=== PATIENT | female | born 1995 | race Caucasian/White ===

== ENCOUNTER 2018-10-20 06:38 | Day surgery (SDC) | payer OTHER ==
[2018-10-19 17:39] LABS: Absolute Monocytes 0.5 K/uL (0.1-1.3); Absolute Neutrophil 3.4 K/uL (1.8-8.0); Basophils % 0.7 % (0-1.3); Eosinophils % 1.7 % (0-4.4); Hematocrit 42.3 % (36.0-45.0); MPV 9.1 fL (7.6-11.3); Monocytes % 7.5 % (3.3-12.3); Protime INR 0.93; RBC Red Blood Cell Count 4.35 M/uL (3.86-4.86)
[2018-10-19 17:45] LABS: Urine Appearance CLOUDY; Urine Bilirubin NEGATIVE (NEG); Urine Blood NEGATIVE (NEG); Urine Color YELLOW; Urine Glucose NEGATIVE (NEG); Urine Protein NEGATIVE (NEG); Urine Urobilinogen 0.2 mg/dL (0.2-1.0)
--- NOTE | 2018-10-19 17:45 | RAD REPORT ---
EXAM DESCRIPTION: RAD - Chest Pa And Lat (2 Views) - 10/19/2018 5:33 pm CLINICAL HISTORY: preop Chest pain. COMPARISON: No comparisons FINDINGS: The lungs are clear. The heart is normal in size. No displaced fractures. IMPRESSION: No acute or concerning finding suspected.
[2018-10-19 17:49] LABS: BUN Blood Urea Nitrogen 19 mg/dL (7-18); Bicarbonate 29 mmol/L (21-32); Glucose Level 83 mg/dL (74-106); Potassium 3.9 mmol/L (3.5-5.1); Sodium Level 140 mmol/L (136-145)
[2018-10-19 17:51] LABS: Urine Microscopic Reflex ORDER UMIC
[2018-10-19 19:16] LABS: Urine Bacteria <20 /HPF (<20); Urine RBC <5 /HPF (NONE SEEN)
[2018-10-19 19:17] LABS: Urine Amorphous Sediment 2+ /HPF (NONE SEEN); Urine Culture Reflex Order NOT NEEDED; Urine Mucus 2+ /HPF (NONE SEEN)
--- NOTE | 2018-10-19 21:24 | PREOPHP ---
Date of Admission: 10/20/2018 A 22-year-old female with a large left adnexal mass. Ultrasound demonstrates with probably an organi zed hematoma with part fluid and part solid component. We do not think this is probably anything to do with the cancer, although the patient knows that we cannot be 100% sure. She has had this for a l ittle while and wishes to have it removed at this point. She does not wish to wait any further. I h ave given her options of waiting another week or two, but she says the discomfort is too much and she cannot wait. She knows that because it is large and has been there for not determinable length of t ryan, that we may end up having to remove the tube and ovary on that side. She is fully aware of this and wishes to proceed. Family History: Really not contributory to the present situation. Allergies: SHE HAS ALLERGIES TO MUSCLE RELAXANTS, AZITHROMYCIN AND COUGH SYRUP. SHE HAS HAD A IN THE PAST. Physical Examination: General: Completely clear. HEENT: Clear. Pupils equal, round, and reactive to light and accommodation. Conjunctivae well perf used. No oral, lingual, or buccal lesions. Chest: Clear. Lungs: Clear. Heart: Without murmurs, thrills, heaves, or rubs. Breasts: Not examined, but on previous visits, clear. Abdomen: Soft, with the left lower quadrant discomfort and she has a large mass at least 7.5 cm, it is very tender on palpation. Extremities: Clear without edema, cyanosis, or clubbing. Infection, blood loss, anesthetic complications, injury to bladder, bowel, ureter, postoperative comp lications, clots in legs discussed. The patient knows fully well this does not constitute all the po ssible problems that could occur during or following surgery. We will proceed. She knows Dr. Amarjit chahal and I will be doing the surgery and if we cannot get this thing out laparoscopically, we will do an open procedure. MADHURI/ANNETTE Voice ID: [id number]
[2018-10-20] MEDS ORDERED: Ringers Lactate 1,000 ML IV ONE ×2 (07:04→08:14)
[2018-10-20] MEDS ORDERED: CEFOXITIN/SWI 1gm 1 GM/10 ML SYR ONE (07:05)
[2018-10-20] MEDS ORDERED: CEFAZOLIN/SWI 1gm 0 GM/0 ML SYR ONE (07:05)
[2018-10-20] MEDS ORDERED: SILVER NITRATE 1 APPL TOP ONE (07:17)
[2018-10-20] MEDS ORDERED: BUPIVACAINE 0.5% PF 10 ML VIAL ONE (07:17)
[2018-10-20] MEDS ORDERED: FENTANYL CITR 100 MCG/2 ML ONE ×3 (07:26→08:46)
[2018-10-20] MEDS ORDERED: PROPOFOL 200 MG/20 ML VIAL IV ONE (07:26)
[2018-10-20] MEDS ORDERED: ROCURONIUM 50 MG/5 ML VIAL IV ONE (07:27)
[2018-10-20] MEDS ORDERED: MIDAZOLAM HCL 2 MG/2 ML INJ ONE (07:27)
[2018-10-20] MEDS ORDERED: LIDOCAINE 1% MPF 5 ML VIAL ONE (07:27)
[2018-10-20] MEDS ORDERED: DEXAMETHASONE 10 MG/ML VIAL ONE (08:16)
[2018-10-20] MEDS ORDERED: NEOSTIGMINE 1 MG/ML -10 ML VIAL ONE (08:22)
[2018-10-20] MEDS ORDERED: GLYCOPYRROLATE 0.2 MG/ML SYR ONE (08:22)
[2018-10-20] MEDS ORDERED: KETOROLAC 30 MG/ML INJ ONE ×2 (08:22→12:23)
[2018-10-20] MEDS ORDERED: ONDANSETRON 4 MG/2 ML VIAL ONE (08:22)
[2018-10-20] MEDS: HYDROMORPHONE HCL 1 MG/ML INJ ONE ×4 (09:04→09:21)
--- NOTE | 2018-10-20 09:17 | P.BOP ---
Preoperative diagnosis: LLQ pain, L adnexal mass Postoperative diagnosis: same , intrabdominal adhesions, incarcerated umbilical hernia Primary procedure: Dr Sanz: All laparoroscopy, Lap RUBY, open repair incarumbilical hernia Secondary procedure: DR Gardner: All lap, cystectomy ( see Dr gardner op report for details) Estimated blood loss: <10cc Specimen: hernia sac, cyst Findings: see op report Anesthesia: General Complications: None Transferred to: Recovery Room Condition: Good
[2018-10-20] MEDS ORDERED: CODEINE 30MG/APAP 300MG TAB ONE (10:32)
[2018-10-20] MEDS ORDERED: ONDANSETRON 4 MG (ODT) TAB ONE (10:32)
[2018-10-20] MEDS ORDERED: MEPERIDINE HCL 25 MG/0.5 ML ONE (12:23)
[2018-10-20] MEDS ORDERED: PROMETHAZINE 25 MG/ML VIAL ONE (13:00)
--- NOTE | 2018-10-20 13:31 | OP ---
Date of Procedure: 10/20/2018 Surgeon: Padilla Sanz MD Preoperative Diagnosis: Left lower quadrant pain, left adnexal mass. Postoperative Diagnosis: Left lower quadrant pain, left adnexal mass, intraabdominal adhesions, inca rcerated umbilical hernia. Procedures: This was done by 2 different surgeons. My partner, Dr. Gardner will dictate his part from the gynecological standpoint. From the General Surgery standpoint, Dr. Sanz did a diagnostic la paroscopy, laparoscopic lysis of adhesions, open repair of incarcerated umbilical hernia. From Dr. Chepe schmid's standpoint, he performed diagnostic lap with a cystectomy and any other procedure that he will dictate on his report. Estimated Blood Loss: Less than 10 cc. Specimen: Hernia sac, cyst. Findings: We will describe the findings from the General Surgery standpoint. Please see Dr. Gardner's report for the findings from the gynecological standpoint. From the General Surgery standpoint, the patient has previous . She has extensive adhesions in the lower abdomen that needs to be a ddressed and removed not only because it may relieve her pain and help with her pain, but also to get access to the ovarian lesion. The lysis of adhesions was done with the help of a ligature. Diagnos tic lap was done, liver with no extraluminal masses. Stomach soft and compressible. Some adhesions over the area of the liver, but nothing major in that area. Stomach soft and compressible. Small julio wel and large bowel with no extraluminal masses seen. Retroperitoneum, we did not see any obvious ma sses that we can see in our site of the peritoneum. Over the area of the pelvis, we noticed the jay ent to have what looks like a cystic lesion on the left side coming near the ovary. We did not see a ny obvious masses. Once again, refer to Dr. Gardner's dictation for details. Indications: This is a case of a 23-year-old patient, comes with left lower quadrant pain, diagnosed with a cystic mass over the left adnexal region. Dr. Gardner after discussing with her decided to do a cystectomy, possible oophorectomy and salpingectomy. From the General Surgery standpoint, I have a chance to interview the patient preoperatively and discuss with her the options of diagnostic lap, p ossible lysis of adhesions since patient has previous surgeries in that area. The belly button area has mild tenderness. She had previous surgeries to that region, so when we go there we are going to try to rule out also umbilical hernia, although I have to make an incision first and any other indica jazmyne procedure. Dr. Gardner will be present to help to take care of any ovarian pathology that is encou ntered. The benefits, alternatives, and risks were fully explained to the patient, which include, bu t are not limited to infection, bleeding, damage to adjacent structures, anesthesia complications, re currence, negative laparoscopy, bowel injury, OK, even . She also understands this may not reli mackenzie any symptoms. She might need more than one surgical intervention. She understood and signed a c onsent. Description Of Procedure: The patient was brought to the operating room, placed in supine position. Anesthesia was done without complication. A time-out was called. Abdomen was prepped and draped in a sterile fashion. Local anesthetic was applied in infraumbilical region. We opened up previous in cision of the patient in that area. When we went there, the patient had incarcerated omentum to the umbilical hernia, so carefully the umbilical sac was identified, opened, removed. That gave us acces s to the fascia. We extended the fascia a little bit more to allow the Mitchell trocar to be going in. We then put the trocars in immediately. We noticed adhesions on the lower abdomen, and we knew we are going to have to address that issue in order for us to found the pathology. Dr. Gardner is looking for. After obtaining pneumoperitoneum, I placed a 5 mm trocar on the right lower quadrant. This al lowed me to put an Endo-Ligasure the area and proceed to do lysis of adhesions carefully, not to inju re the cancer program director parts and not to injure the bowel. Slowly and methodically, the lysis of adhesions were d one. Significant amount of time was done just releasing the lysis of adhesions. We checked on them after that, there were no enterotomies and no bleeding. Once we have in, then Dr. Gardner has access t o the gynecological part. He examined the uterus and ovaries and fallopian tube. Please see his dic tation. From our surgical standpoint, we did our diagnostic lap like I mentioned at the beginning of this dictation. Also, we looked at the appendix and looks normal. So, at that moment, we proceeded to direct our attention to the left ovarian area and we noticed the patient had a cystic lesion in t hat area. At the discretion of a lead mobile developer, he believed the fallopian tube and ovarian area shoul d be okay, so the cystectomy was done with the help of the LigaSure and hemostasis was obtained. Jorge gicel was placed at the end. Please see his dictation for details on that. Ureters and iliac vessel s were protected at all times. Intestines were protected at all times. After that, we pr oceeded to go back to our lysis of adhesions. The area looks intact with no bleeding. At that momen t, I proceeded to remove the trocars under direct vision, deflated pneumoperitoneum, closed the umbil ical hernia with a #1 Vicryl interrupted multiple times. The area was irrigated and then closed with 3-0 chromic and subcuticular and subcutaneous. The patient tolerated the procedure well. Sponge co unt and instrument counts were correct. The patient was sent to recovery in stable condition. Discharge summary is from the General Surgery standpoint. You have share with Dr. Gardner, gynecologis t for his discharge instructions, but from the General Surgery standpoint, she will be discharged cora e, follow up in my office in 1 week. Call for appointment [phone]. Keep the area dry for 48 hours, then may shower. Keep Steri-Strips intact. Medications: Include Tylenol No. 3 q.4 hours p.r.n. pain, Bactrim DS p.o. b.i.d., Zofran 4 p.r.n. na usea. She was advised also to follow with Dr. Gardner. CHADWICK/ANNETTE Voice ID: [id number] Report ID: [id number]
[2018-10-20 13:40] VITALS: BP 125/77; TEMP 97.5; O2SAT 97
--- NOTE | 2018-10-20 20:03 | DS ---
Date of Discharge: 10/20/2018 Hospital Course: A 23-year-old female, left large ovarian mass. Full preoperative counseling concer mellisa procedure. She was also given the opportunity to wait to see if this would resolve, but wished t o proceed, said the pain was too great. Diagnostic laparoscopy was performed at which time numerous adhesions of the omentum to the anterior peritoneum were removed. A large omental adhesion to the le ft fundal portion of the uterine fundus was removed. The left ovarian cystectomy was performed. Min imal blood loss, less than 50 cc. Surgicel was placed around the ovary to try to prevent future adhe sions. The appendix was normal. Upper abdomen was normal. The patient also underwent a hernia repa ir. Will be observed for 2-3 hours, then dismissed. To return to my office in 1 week for followup. To report any temperature elevation of 100 degrees or greater, severe pain, heavy bleeding, or any o ther type of abnormalities. She has tramadol at home for analgesia. Full discussion with her family to remind them of postoperative precautions. MADHURI/ANNETTE Voice ID: [id number] Report ID: [id number]
--- NOTE | 2018-10-20 20:03 | OP ---
Surgeon: Rey Gardner MD Preoperative Diagnosis: Probable left ovarian hemorrhagic cyst-organized. Pelvic pain. Indications: Full preoperative counseling concerning the procedure and possible complications, inclu ding infection, blood loss, anesthetic complications, injury to bladder, bowel, ureter, postoperative complications, clots in legs, and pneumonia. Possible removal of the left tube and ovary discussed. General anesthetic endotracheal intubation. Procedure In Detail: Time-out was performed. Laparoscopic incisions were placed. There were noted to be numerous adhesions of the omentum to the anterior peritoneum. These were removed. There were also adhesions to the left fundal portion of the uterus, these were removed. The right tube and ovar y were basically seen to be normal. The left tube was normal. The right ovary was involved in a jessie y large 7.5 to 8 cm cyst. A window was produced and the normal-looking fluid was drained. It became apparent that the organized cyst could be removed. This was done sequentially with the LigaSure aft er the hemorrhagic portion was removed and sent to Pathology. The edges of the window that had been produced were fulgurated. There was no further bleeding. Thorough irrigation was performed, at leas t half of the ovary was conserved. Surgicel was then placed. At this point, Dr. Sanz is in the process of repairing the umbilical hernia. The appendix appeared to be normal. The upper abdomen ap peared to be normal as well. Minimal blood loss, less than 50 cc. The patient tolerated all procedu res well and after hernia repair will be sent to the recovery room in good condition. Final Diagnoses: Pelvic pain, left ovarian probable hemorrhagic cyst. Diagnostic laparoscopy, numer ous adhesions lysed. Left ovarian cystectomy and placement of Surgicel to prevent future adhesions. Umbilical hernia repair now underw ay. NBC/MODL Voice ID: [id number] Report ID: [id number]
== END 2018-10-20 13:40 | disposition home or self-care (01) ==
LOC: OR 06:38
PROVIDERS: ATTEND Specialist
PROC: 0DNU4ZZ Release Omentum, Percutaneous Endoscopic Approach (ICD-10-PCS; 2018-10-20)
PROC: 0UB14ZZ Excision of Left Ovary, Percutaneous Endoscopic Approach (ICD-10-PCS; principal; 2018-10-20 07:30)
PROC: 0WQF0ZZ Repair Abdominal Wall, Open Approach (ICD-10-PCS; 2018-10-20 07:30)
DX: C56.2 Malignant neoplasm of left ovary (principal); K42.0 Umbilical hernia with obstruction, without gangrene; K66.0 Peritoneal adhesions (postprocedural) (postinfection); F17.210 Nicotine dependence, cigarettes, uncomplicated
CPT/HCPCS: 36415; 71046; 80048; 81003; 81015; 84703; 85025; 85610; 86850; 86900; 86901; 88302; 88305; 88307; J0690; J1100; J1170; J2175; J2250; J2405; J2550; J2704; J2710; J3010

== ENCOUNTER 2018-11-02 21:50 | Emergency (ER) | payer OTHER ==
[2018-11-02 23:48] LABS: Absolute Lymphocytes (CBC) 2.1 K/uL (0.7-4.9); Absolute Monocytes 0.3 K/uL (0.1-1.3); Absolute Neutrophil 2.8 K/uL (1.8-8.0); Basophils % 2.1 % (0-1.3); Eosinophils % 2.7 % (0-4.4); Hematocrit 37.8 % (36.0-45.0); Lymphocytes % 38.6 % (15.3-44.8); MPV 9.2 fL (7.6-11.3); Monocytes % 5.9 % (3.3-12.3); RBC Red Blood Cell Count 3.93 M/uL (3.86-4.86)
[2018-11-02 23:49] LABS: Protime INR 1.01
[2018-11-03 00:02] LABS: ALT/SGPT 54 U/L (12-78); AST/SGOT 15 U/L (15-37); Alkaline Phosphatase 79 U/L (45-117); BUN Blood Urea Nitrogen 18 mg/dL (7-18); Bicarbonate 28 mmol/L (21-32); Bilirubin Direct < 0.1 mg/dL (0-0.2); Bilirubin Total 0.4 mg/dL (0.2-1.0); Glucose Level 84 mg/dL (74-106); Magnesium 2.1 mg/dL (1.8-2.4); NT PRO-BNP 15 pg/mL (<125); Potassium 3.8 mmol/L (3.5-5.1); Protein, Total 7.2 g/dL (6.4-8.2); Sodium Level 144 mmol/L (136-145); Troponin (Emerg Dept Use Only) < 0.02 ng/mL (0.0-0.045)
[2018-11-03 01:32] LABS: Urine Blood 1+ (NEG); Urine Glucose NEGATIVE (NEG); Urine Protein NEGATIVE (NEG); Urine Specific Gravity >1.030 (1.005-1.030); Urine pH 5.5 (5.0-7.0)
--- NOTE | 2018-11-03 02:20 | ER ---
Nurse's Notes [facility] Name: Pratima Peterson Age: 23 yrs Sex: Female : 1995 Arrival Date: 11/02/2018 Time: 21:53 Bed 23 Private MD: Raul Mendez E Diagnosis: Shortness of breath;Acute stress reaction Presentation: 11/02 22:02 Presenting complaint: Patient states: SOB, pain between shoulder blades X2 days [employer]. pt ak1 s/p sx 10/20/18. pt sees Dr. Camargo for ovarian cancer. Transition of care: patient was not received from another setting of care. Onset of symptoms is unknown. Risk Assessment: Do you want to hurt yourself or someone else? Patient reports no desire to harm self or others. Initial Sepsis Screen: Does the patient have a suspected source of infection? No. Patient's initial sepsis screen is negative. Care prior to arrival: None. 22:02 Method Of Arrival: Ambulatory ak1 22:02 Acuity: CALDERON 3 ak1 22:30 Initial Sepsis Screen: Does the patient meet any 2 criteria? No. Patient's initial lp1 sepsis screen is negative. Triage Assessment: 22:04 General: Appears in no apparent distress. Behavior is calm, cooperative, anxious. 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 - Social history:: Smoking status: Patient uses tobacco products, denies chronic smoking, but will smoke occasionally. - Ebola Screening: : No symptoms or risks identified at this time. Screenin:42 Abuse screen: Denies threats or abuse. Denies injuries from another. Nutritional lp1 screening: No deficits noted. Tuberculosis screening: No symptoms or risk factors identified. Fall Risk None identified. Assessment: 22:30 General: Appears ill, Behavior is appropriate for age. Pain: Complains of pain in back lp1 Quality of pain is described as sharp. Neuro: Level of Consciousness is awake, alert, obeys commands, Oriented to person, place, time, situation. Cardiovascular: Patient's skin is warm and dry. Respiratory: Reports shortness of breath Airway is patent Respiratory effort is even, unlabored, Respiratory pattern is regular, Breath sounds are clear bilaterally. GI: Abdomen is flat. : No signs and/or symptoms were reported regarding the genitourinary system. EENT: No signs and/or symptoms were reported regarding the EENT system. Derm: Skin is intact, Skin is dry, Skin is pale. Musculoskeletal: No deficits noted. 23:30 Reassessment: Patient appears in no apparent distress at this time. No changes from lp1 previously documented assessment. Patient and/or family updated on plan of care and expected duration. Pain level reassessed. 11/03 01:22 Reassessment: Patient appears in no apparent distress at this time. Patient is alert, lp1 oriented x 3, equal unlabored respirations, skin warm/dry/pink. Patient returned from CT at this time. Vital Signs: 11/02 22:04 BP 113 / 69; Pulse 108; Resp 16; Temp 98; Pulse Ox 98% on R/A; Weight 58.97 kg (R); ak1 Height 5 ft. 9 in. (175.26 cm) (R); Pain 7/10; 23:00 BP 99 / 66; Pulse 68; Resp 18; Pulse Ox 99% on R/A; lp1 23:30 BP 107 / 70; Pulse 62; Resp 19; Pulse Ox 98% on R/A; lp1 11/03 00:04 BP 94 / 63; Pulse 63; Resp 19; Pulse Ox 98% on R/A; lp1 01:23 BP 104 / 93; Pulse 73; Resp 15; Pulse Ox 99% on R/A; lp1 02:35 BP 94 / 60; Pulse 71; Resp 16; Pulse Ox 99% on R/A; lp1 11/02 22:04 Body Mass Index 19.20 (58.97 kg, 175.26 cm) ak1 ED Course: 11/02 21:53 Patient arrived in ED. am2 21:53 Yomi Wayne MD is Private Physician. am2 21:53 Raul Mendez MD is Private Physician. am2 22:03 Triage completed. ak1 22:04 Arm band placed on Patient placed in an exam room, Patient notified of wait time. ak1 22:17 Anastasia Hodges, RN is Primary Nurse. lp1 22:30 Patient has correct armband on for positive identification. Placed in gown. Cardiac lp1 monitor on. Pulse ox on. NIBP on. 22:45 Reji Quinones NP is PHCP. pm1 22:45 Hugh Duarte MD is Attending Physician. pm1 22:56 Radiology exam delayed due to lab results not completed at this time. (BUN/Creatinine). vm2 23:08 Basic Metabolic Panel Sent. jb5 23:08 CBC with Diff Sent. jb5 23:08 LFT's Sent. jb5 23:08 Magnesium Sent. jb5 23:08 NT PRO-BNP Sent. jb5 23:08 PT-INR Sent. jb5 23:08 Troponin (emerg Dept Use Only) Sent. jb5 23:09 Urine --Ancillary (enter results) Sent. jb5 23:09 Urine Dipstick--Ancillary (enter results) Sent. jb5 23:09 Inserted saline lock: 20 gauge in right antecubital area, using aseptic technique. jb5 Blood collected. 0417 00:[address] via wheelchair. lp1 01:22 No provider procedures requiring assistance completed. lp1 01:29 CT Chest For PE Angio In Process Unspecified. EDMS 01:30 CT Abd/Pelvis - W/Contrast: IV contrast only In Process Unspecified. EDMS 02:36 IV discontinued, No redness/swelling at site. Pressure dressing applied. lp1 Administered Medications: No medications were administered Outcome: 02:19 Discharge ordered by MD. pm1 02:36 Discharged to home ambulatory, with family. lp1 02:36 Condition: stable 02:36 Discharge instructions given to patient, Instructed on discharge instructions, follow up and referral plans. Demonstrated understanding of instructions, follow-up care. 02:40 Patient left the ED. lp1 Signatures: Dispatcher [employer] EDNC Anastasia Hodges, RN RN lp1 Alka Cheng RN RN ak1 Reji Quinones, TAMIKO SAFETY OFFICER pm1 Kaylee Carmichael jb5 Rosario Dominguez [facility]
--- NOTE | 2018-11-03 02:20 | EDPHYS ---
Physician Documentation [facility] Name: Pratima Peterson Age: 23 yrs Sex: Female : 1995 Arrival Date: 11/02/2018 Time: 21:53 Bed 23 Private MD: Raul Mendez E ED Physician Hugh Duarte HPI: 11/03 01:19 This 23 yrs old Female presents to ER via Ambulatory with complaints of pm1 possible blood clot. 01:19 The patient has shortness of breath at rest. Onset: The symptoms/episode began/occurred pm1 2 day(s) ago. The patient's shortness of breath is aggravated by moving right arm, is alleviated by nothing. Associated signs and symptoms: Pertinent negatives: chest pain, non-productive cough, productive cough, fever, nausea, vomiting. Severity of symptoms: in the emergency department the symptoms are unchanged. The patient has not experienced similar symptoms in the past. The patient has been recently seen by a physician: Patient with biopsy of left ovary on October 20 and was just given the diagnosis of ovarian cancer on Thursday. Patient reports pain just medial to left shoulder blade and shortness of breath. Patient was concerned that she might have a blood clot. SIDE BOSS: 11/02 22:04 LMP 11/02/2018 ak1 Historical: - Allergies: 22:03 No Known Allergies; ak1 - Home Meds: 22:03 None [Active]; ak1 - PMHx: 22:03 ovarian cancer; ak1 - PSHx: 22:03 ; Cholecystectomy; ak1 22:04 explore lap 10/20/18; ak1 - Immunization history:: Adult Immunizations unknown. - Social history:: Smoking status: Patient uses tobacco products, denies chronic smoking, but will smoke occasionally. - Ebola Screening: : No symptoms or risks identified at this time. ROS: 11/03 01:19 Constitutional: Negative for fever, chills, and weight loss, Eyes: Negative for injury, pm1 pain, redness, and discharge, ENT: Negative for injury, pain, and discharge, Neck: Negative for injury, pain, and swelling, Cardiovascular: Negative for chest pain, palpitations, and edema. : Negative for injury, bleeding, discharge, and swelling, MS/Extremity: Negative for injury and deformity, Skin: Negative for injury, rash, and discoloration, Neuro: Negative for headache, weakness, numbness, tingling, and seizure. Respiratory: Positive for shortness of breath. Back: Positive for of the right scapular area. Exam: 01:19 Constitutional: This is a well developed, well nourished patient who is awake, alert, pm1 and in no acute distress. Head/Face: Normocephalic, atraumatic. Eyes: Pupils equal round and reactive to light, extra-ocular motions intact. Lids and lashes normal. Conjunctiva and sclera are non-icteric and not injected. Cornea within normal limits. Periorbital areas with no swelling, redness, or edema. ENT: Nares patent. No nasal discharge, no septal abnormalities noted. Tympanic membranes are normal and external auditory canals are clear. Oropharynx with no redness, swelling, or masses, exudates, or evidence of obstruction, uvula midline. Mucous membranes moist. Neck: Trachea midline, no thyromegaly or masses palpated, and no cervical lymphadenopathy. Supple, full range of motion without nuchal rigidity, or vertebral point tenderness. No Meningismus. Chest/axilla: Normal chest wall appearance and motion. Nontender with no deformity. No lesions are appreciated. Cardiovascular: Regular rate and rhythm with a normal S1 and S2. No gallops, murmurs, or rubs. Normal PMI, no JVD. No pulse deficits. 01:19 Abdomen/GI: Soft, non-tender, with normal bowel sounds. No distension or tympany. No guarding or rebound. No evidence of tenderness throughout. 01:19 Skin: Warm, dry with normal turgor. Normal color with no rashes, no lesions, and no evidence of cellulitis. MS/ Extremity: Pulses equal, no cyanosis. Neurovascular intact. Full, normal range of motion. 01:19 Respiratory: the patient does not display signs of respiratory distress, Respirations: normal, Breath sounds: are clear throughout. 01:19 Back: pain, that is mild, of the right scapular area, pain with palpation and movement of right arm, normal spinal alignment noted. 01:19 Neuro: Orientation: is normal, Motor: is normal, moves all fours, Sensation: is normal, no obvious gross deficits. Vital Signs: 11/02 22:04 BP 113 / 69; Pulse 108; Resp 16; Temp 98; Pulse Ox 98% on R/A; Weight 58.97 kg (R); ak1 Height 5 ft. 9 in. (175.26 cm) (R); Pain 7/10; 23:00 BP 99 / 66; Pulse 68; Resp 18; Pulse Ox 99% on R/A; lp1 23:30 BP 107 / 70; Pulse 62; Resp 19; Pulse Ox 98% on R/A; lp1 11/03 00:04 BP 94 / 63; Pulse 63; Resp 19; Pulse Ox 98% on R/A; lp1 01:23 BP 104 / 93; Pulse 73; Resp 15; Pulse Ox 99% on R/A; lp1 02:35 BP 94 / 60; Pulse 71; Resp 16; Pulse Ox 99% on R/A; lp1 11/02 22:04 Body Mass Index 19.20 (58.97 kg, 175.26 cm) ak1 MDM: 11/02 22:58 Patient medically screened. pm1 11/03 02:18 Data reviewed: vital signs. Data interpreted: Pulse oximetry: on room air is 99 %. pm1 Interpretation: normal. Counseling: I had a detailed discussion with the patient and/or guardian regarding: the historical points, exam findings, and any diagnostic results supporting the discharge/admit diagnosis, lab results, radiology results, the need for outpatient follow up, to return to the emergency department if symptoms worsen or persist or if there are any questions or concerns that arise at home. 02:18 ED course: patient without any acute findings on CT. Patient with recent diagnosis of pm1 ovarian cancer by biopsy on Thursday. Patient has appointment with oncologist this week. 11/02 22:52 Order name: Urine Dipstick--Ancillary (enter results); Complete Time: 01:37 mw2 11/02 22:52 Order name: Urine --Ancillary (enter results); Complete Time: 01:37 mw2 11/02 22:55 Order name: Basic Metabolic Panel; Complete Time: 01:04 pm1 11/02 22:55 Order name: CBC with Diff; Complete Time: 01:04 pm1 11/02 22:55 Order name: LFT's; Complete Time: 01:04 pm1 11/02 22:55 Order name: Magnesium; Complete Time: 01:04 pm1 04/16 22:55 Order name: CT Chest For PE Angio pm1 11/02 22:55 Order name: NT PRO-BNP; Complete Time: 01:04 pm1 11/02 22:55 Order name: PT-INR; Complete Time: 01:04 pm1 11/02 22:55 Order name: Troponin (emerg Dept Use Only); Complete Time: 01:04 pm1 11/02 22:55 Order name: EKG; Complete Time: 22:55 pm1 11/02 22:55 Order name: Cardiac monitoring; Complete Time: 23:24 pm1 11/02 22:55 Order name: EKG - Nurse/Tech; Complete Time: 22:57 pm1 11/02 22:58 Order name: CT Abd/Pelvis - W/Contrast: IV contrast only pm1 11/02 22:55 Order name: IV Saline Lock; Complete Time: 23:08 pm1 11/02 22:55 Order name: Labs collected and sent; Complete Time: 23:08 pm1 11/02 22:55 Order name: O2 Per Protocol; Complete Time: 23:39 pm1 11/02 22:55 Order name: O2 Sat Monitoring; Complete Time: 23:39 pm1 Administered Medications: No medications were administered Disposition: 04:57 Co-signature as Attending Physician, Hugh Duarte MD. clint Disposition: 11/03/18 02:19 Discharged to Home. Impression: Shortness of breath, Acute stress reaction. - Condition is Stable. - Discharge Instructions: Shortness of Breath, Stress and Stress Management. - Medication Reconciliation Form, Thank You Letter, Antibiotic Education, Prescription Opioid Use form. - Follow up: Emergency Department; When: As needed; Reason: Worsening of condition. Follow up: Private Physician; When: 2 - 3 days; Reason: Recheck today's complaints, Continuance of care, Re-evaluation by your physician. - Problem is new. - Symptoms have improved. Signatures: Dispatcher [employer] EDMS Hugh Duarte MD MD pkl Anastasia Hodges RN RN lp1 Alka Cheng RN RN ak1 Reji Quinones, SAP PPM CONSULTANT SAP PPM CONSULTANT pm1 Corrections: (The following items were deleted from the chart) 02:20 02:19 11/03/2018 02:19 Discharged to Home. Impression: Pain in right shoulder. pm1 Condition is Stable. Forms are Medication Reconciliation Form, Thank You Letter, Antibiotic Education, Prescription Opioid Use. Follow up: Emergency Department; When: As needed; Reason: Worsening of condition. Follow up: Private Physician; When: 2 - 3 days; Reason: Recheck today's complaints, Continuance of care, Re-evaluation by your physician. Problem is new. Symptoms have improved. pm1 02:27 02:20 11/03/2018 02:19 Discharged to Home. Impression: Pain in right shoulder; pm1 Shortness of breath. Condition is Stable. Discharge Instructions: Shoulder Pain. Forms are Medication Reconciliation Form, Thank You Letter, Antibiotic Education, Prescription Opioid Use. Follow up: Emergency Department; When: As needed; Reason: Worsening of condition. Follow up: Private Physician; When: 2 - 3 days; Reason: Recheck today's complaints, Continuance of care, Re-evaluation by your physician. Problem is new. Symptoms have improved. pm1 02:27 02:27 11/03/2018 02:19 Discharged to Home. Impression: Shortness of breath. Condition pm1 is Stable. Discharge Instructions: Shoulder Pain. Forms are Medication Reconciliation Form, Thank You Letter, Antibiotic Education, Prescription Opioid Use. Follow up: Emergency Department; When: As needed; Reason: Worsening of condition. Follow up: Private Physician; When: 2 - 3 days; Reason: Recheck today's complaints, Continuance of care, Re-evaluation by your physician. Problem is new. Symptoms have improved. pm1 02:40 02:27 11/03/2018 02:19 Discharged to Home. Impression: Shortness of breath; Acute lp1 stress reaction. Condition is Stable. Discharge Instructions: Shortness of Breath, Stress and Stress Management. Forms are Medication Reconciliation Form, Thank You Letter, Antibiotic Education, Prescription Opioid Use. Follow up: Emergency Department; When: As needed; Reason: Worsening of condition. Follow up: Private Physician; When: 2 - 3 days; Reason: Recheck today's complaints, Continuance of care, Re-evaluation by your physician. Problem is new. Symptoms have improved. pm1
[2018-11-03 02:45] VITALS: TEMP 98
[2018-11-03 02:50] VITALS: O2SAT 99
[2018-11-03 02:51] VITALS: BP 94/60
--- NOTE | 2018-11-03 07:34 | EKG ---
Test Date: 2018-11-02 Test Time: 22:35:30 Custom Bow Maker: ELICEO MEASUREMENT RESULTS: Intervals: Rate: 68 VT: 114 QRSD: 78 QT: 406 QTc: 431 [place]: P: VT: 114 QRS: 70 T: 59 INTERPRETIVE STATEMENTS: Normal sinus rhythm Normal ECG Compared to ECG 05/23/2011 14:49:58 No significant changes Electronically Signed On 11-03-18 07:33:32 CDT by Carlos Plummer
--- NOTE | 2018-11-04 11:03 | RAD REPORT ---
EXAM DESCRIPTION: CT Chest With Intravenous Contrast CT Abdomen and Pelvis With Intravenous Contrast CLINICAL HISTORY: The patient is 23 years old and is Female; SOB TECHNIQUE: Axial computed tomography images of the chest, abdomen and pelvis with intravenous contra st. Sagittal and coronal reformatted images were created and reviewed. This CT exam was performed using one or more of the following dose reduction techniques: automated exposure control, adjustme nt of the mA and/or kV according to patient size, and/or use of iterative reconstruction technique. Oblique reformatted images were created and reviewed. COMPARISON: None. FINDINGS: CHEST: AORTA: No acute findings. No aortic aneurysm. No dissection. PULMONARY ARTERIES: Unremarkable as visualized. No pulmonary embolism is identified. GREAT VESSELS OF AORTIC ARCH: No acute findings. No dissection. No arterial occlusion or signi ficant stenosis. LUNGS: Unremarkable. No mass. No consolidation. PLEURAL SPACE: No focal consolidation, pleural effusion or pneumothorax. HEART: Unremarkable. No cardiomegaly. No significant pericardial effusion. ABDOMEN: LIVER: Unremarkable. No mass. GALLBLADDER AND BILE DUCTS: Prior cholecystectomy. No ductal dilation. PANCREAS: Unremarkable. No ductal dilation. No mass. SPLEEN: Unremarkable. No splenomegaly. ADRENALS: Unremarkable. No mass. KIDNEYS AND URETERS: Subcentimeter right renal cyst in the superior pole. No hydronephrosis. No solid mass. STOMACH AND BOWEL: Unremarkable. No obstruction. No mucosal thickening. PELVIS: APPENDIX: The appendix is seen and is within normal limits. BLADDER: Unremarkable. No mass. REPRODUCTIVE: Heterogenous enlargement of the uterus with prominence and tortuous pelvic vasculatu re. Suggestion of a 3.3 cm right ovarian cyst. Similar appearing finding measuring 2.5 cm as seen on the right. CHEST, ABDOMEN and PELVIS: INTRAPERITONEAL SPACE: Unremarkable. No significant fluid collection. No free air. BONES/JOINTS: No acute fracture. No dislocation. SOFT TISSUES: Unremarkable. LYMPH NODES: Unremarkable. No enlarged lymph nodes. IMPRESSION: 1. No acute pulmonary embolism or aortic dissection. 2. No acute abdominal or pelvic abnormality. 3. Enlarged uterus with prominent/tortuous pelvic vasculature which may represent pelvic congestion syndrome. 4. Bilateral ovarian cysts measuring up to 3.3 cm on the right. Recommend follow-up pelvic US in 6- 12 weeks. Reference: J Am Katerin Radiol 2013;10:675-681. 5. Subcentimeter right renal cyst. Electronically signed by: Amauri Paredes DO 11/03/2018 1:39 AM CDT Due to temporary technical issues with the PACS/Fluency reporting system, reports are being signed by the in house radiologist as a courtesy to ensure prompt reporting. The interpreting radiologist is f ully responsible for the content of the report.
== END 2018-11-03 02:40 | disposition home or self-care (01) ==
LOC: ER 21:50
DX: F43.0 Acute stress reaction (principal); C56.9 Malignant neoplasm of unspecified ovary; Z72.0 Tobacco use
CPT/HCPCS: 36415; 71275; 74177; 80048; 80076; 81003; 81025; 83735; 83880; 84484; 85025; 85610; 93005; 99285; Q9967

== ENCOUNTER 2019-04-24 18:59 | Emergency (ER) | payer OTHER ==
--- NOTE | 2019-04-24 21:15 | ER ---
Nurse's Notes [facility] Name: Pratima Peterson Age: 23 yrs Sex: Female : 1995 Arrival Date: 04/24/2019 Time: 19:01 Bed Waiting Private MD: Yomi Wayne Diagnosis: Presentation: 04/24 19:44 Presenting complaint: Patient states: "Around noon, I started having pain on my like aj1 pelvic floor, Its like inside my vagina it hurts really bad." Patient reports some light vaginal bleeding, denies abnormal vaginal discharge. Patient reports urinary frequency, denies dysuria. Transition of care: patient was not received from another setting of care. Onset of symptoms was April 24, 2019 at 12:00. Risk Assessment: Do you want to hurt yourself or someone else? Patient reports no desire to harm self or others. Initial Sepsis Screen: Does the patient meet any 2 criteria? No. Patient's initial sepsis screen is negative. Does the patient have a suspected source of infection? Yes: Dysuria/Frequency/Urgency/UTI. Care prior to arrival: None. 19:44 Method Of Arrival: Ambulatory aj1 19:44 Acuity: CALDERON 3 aj1 Triage Assessment: 19:46 General: Appears in no apparent distress. uncomfortable, Behavior is calm, cooperative, aj1 appropriate for age. Pain: Complains of pain in pelvis Pain currently is 10 out of 10 on a pain scale. Neuro: Level of Consciousness is awake, alert, obeys commands. Cardiovascular: Patient's skin is warm and dry. Respiratory: Airway is patent Respiratory effort is even, unlabored, Respiratory pattern is regular, symmetrical. GI: Reports nausea, vomiting, Patient currently denies diarrhea. 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 - Social history:: Smoking status: Patient/guardian denies using tobacco. - Ebola Screening: : Patient denies travel to an Ebola-affected area in the 21 days before illness onset. Vital Signs: 19:46 BP 118 / 82; Pulse 102; Resp 20; Temp 98.5; Pulse Ox 100% on R/A; Weight 63.5 kg (R); aj1 Height 5 ft. 9 in. (175.26 cm) (R); Pain 10/10; 19:46 Body Mass Index 20.67 (63.50 kg, 175.26 cm) aj1 ED Course: 19:01 Patient arrived in ED. as 19:02 Yomi Wayne MD is Private Physician. as 19:46 Triage completed. aj1 19:46 Arm band placed on Patient placed in waiting room, Patient notified of wait time. aj1 20:50 Patient's name was called from ER lobby. Unable to locate patient. Will disposition as fc left without being seen by a provider. Administered Medications: No medications were administered Outcome: 21:15 Patient left the ED. fc Signatures: Vernell Caballero, RN RN aj1 Blessing Gurrola RN RN Faby Sanz as Corrections: (The following items were deleted from the chart) 19:49 19:44 Acuity: CALDERON 4 aj1 aj
[2019-04-24 21:52] VITALS: BP 118/82; TEMP 98.5; O2SAT 100
== END 2019-04-24 21:15 | disposition left against medical advice (07) ==
LOC: ER 18:59
DX: R10.2 Pelvic and perineal pain (principal); Z53.21 Procedure and treatment not carried out due to patient leaving prior to being seen by health care provider
CPT/HCPCS: 99281

== ENCOUNTER 2020-03-02 12:49 | Emergency (ER) | payer OTHER ==
[2020-03-02 13:31] LABS: Urine Blood TRACE (NEG); Urine Glucose NEGATIVE (NEG); Urine Protein NEGATIVE (NEG)
--- NOTE | 2020-03-02 13:51 | RAD REPORT ---
EXAM DESCRIPTION: US - Transvaginal Study Probe - 03/02/2020 1:38 pm CLINICAL HISTORY: ABD PAIN Pelvic pain. COMPARISON: Transvaginal Study Probe dated 10/14/2018; Abdomen Pelvis W Contrast dated 11/03/2018 FINDINGS: The uterus is normal in size, shape and echotexture. The uterus measures 7.3 x 4.3 x 3.2 c m. The endometrial stripe measures 8 mm, normal. The right ovary is normal in size, shape and echotexture measuring 3.2 x 2.0 x 2.0 cm. The left ovary is surgically absent. No ovarian or parovarian lesions. No adnexal masses. Normal Doppler blood flow was demonstrated to the right ovary. No significant pelvic ascites. IMPRESSION: Unremarkable study status post left oophorectomy.
[2020-03-02 14:06] LABS: Absolute Lymphocytes (CBC) 0.9 K/uL (0.7-4.9); Basophils % 0.6 % (0-1.3); Hematocrit 40.8 % (36.0-45.0); Lymphocytes % 18.7 % (15.3-44.8); MPV 8.8 fL (7.6-11.3); RBC Red Blood Cell Count 4.08 M/uL (3.86-4.86)
[2020-03-02] MEDS ORDERED: KETOROLAC 30 MG/ML INJ ONE (14:14)
[2020-03-02 14:15] LABS: Potassium 3.6 mmol/L (3.5-5.1)
--- NOTE | 2020-03-02 14:18 | ER ---
Nurse's Notes [facility] Name: Pratima Peterson Age: 24 yrs Sex: Female : 1995 Arrival Date: 03/02/2020 Time: 12:53 Bed 24 Private MD: Diagnosis: Lower abdominal pain, unspecified;Abnormal uterine and vaginal bleeding, unspecified Presentation: 03/02 12:59 Chief complaint: Patient states: "I am having sever abdominal pain and a lot of jd3 bleeding. yes N/V/D. I did take a plan B on Thursday, but i have taken that before without any kind of side affects.". Coronavirus screen: At this time, the client does not indicate any symptoms associated with coronavirus-19. Ebola Screen: Patient negative for fever greater than or equal to 101.5 degrees Fahrenheit, and additional compatible Ebola Virus Disease symptoms. Initial Sepsis Screen: Does the patient meet any 2 criteria? No. Patient's initial sepsis screen is negative. Does the patient have a suspected source of infection? No. Patient's initial sepsis screen is negative. Risk Assessment: Do you want to hurt yourself or someone else? Patient reports no desire to harm self or others. Onset of symptoms was March 02, 2020. 12:59 Method Of Arrival: Ambulatory jd3 12:59 Acuity: CALDERON 3 jd3 Triage Assessment: 13:02 General: Appears in no apparent distress. comfortable, Behavior is calm, cooperative. ls4 Pain: Complains of pain in suprapubic area Pain currently is 7 out of 10 on a pain scale. GI: Abdomen is round non-distended, Bowel sounds present X 4 quads. Abd is soft and non tender X 4 quads. : Reports vaginal bleeding that is. 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 - Social history:: Smoking status: Patient reports the use of cigarette tobacco products, denies chronic smoking, but will smoke occasionally. Screenin:02 Abuse screen: Denies threats or abuse. Denies injuries from another. ls4 13:02 Nutritional screening: No deficits noted. Tuberculosis screening: No symptoms or risk ls4 factors identified. Fall Risk None identified. Vital Signs: 13:01 BP 145 / 83; Pulse 77; Resp 16 S; Temp 98.3(TE); Pulse Ox 100% on R/A; Weight 54.43 kg jd3 (R); Height 5 ft. 9 in. (175.26 cm) (R); Pain 7/10; 13:01 Body Mass Index 17.72 (54.43 kg, 175.26 cm) jd3 ED Course: 12:53 Patient arrived in ED. ds1 12:54 [facility] kb 12:54 Sumit Cooley MD is Attending Physician. kb 13:00 Triage completed. jd3 13:02 Arm band placed on. jd3 13:02 Patient has correct armband on for positive identification. Placed in gown. Bed in low ls4 position. Call light in reach. Side rails up X2. 13:02 monitoring tech on. Pulse ox on. NIBP on. Warm blanket given. Verbal reassurance given. ls4 13:02 No provider procedures requiring assistance completed. Patient maintains SpO2 ls4 saturation greater than 95% on room air. 13:10 Patient taken to ultrasound. unable to get labs until pt returns. ls4 13:17 Claritza Gage, RN is Primary Nurse. ls4 13:38 US Transvaginal Study (Probe) In Process Unspecified. EDMS 13:50 Initial lab(s) drawn, by me, sent to lab. Inserted saline lock: 20 gauge in right ls4 antecubital area, using aseptic technique. Blood collected. 14:42 IV discontinued, intact, bleeding controlled, No redness/swelling at site. Pressure ls4 dressing applied. Administered Medications: 14:00 Drug: TORadol - Ketorolac 15 mg Route: IVP; Site: right antecubital; ls4 14:20 Follow up: Response: No adverse reaction; Marked relief of symptoms ls4 Outcome: 14:18 Discharge ordered by . kb 14:42 Patient left the ED. ls4 14:42 Discharged to home ambulatory. ls4 14:42 Condition: good 14:42 Discharge instructions given to patient, Instructed on discharge instructions, follow up and referral plans. medication usage, Demonstrated understanding of instructions, follow-up care, medications, Prescriptions given X 1. Signatures: Dispatcher [employer] EDMala Sotelo, HAMMER SMITH-C HAMMER SMITH-Satish BlancoRazi ds1 Hussein Cook RN RN jd3 Claritza Gage RN RN ls4 Corrections: (The following items were deleted from the chart) 13:02 12:59 Chief complaint: Patient states: "I am having sever abdominal pain and a lot of jd3 bleeding. yes N/V/D." jd3 17:18 15:29 Patient left the ED. ls4 ls4
--- NOTE | 2020-03-02 14:18 | EDPHYS ---
Physician Documentation [facility] Name: Pratima Peterson Age: 24 yrs Sex: Female : 1995 Arrival Date: 03/02/2020 Time: 12:53 Bed 24 Private MD: ED Physician Sumit Cooley HPI: 03/02 14:01 This 24 yrs old Female presents to ER via Ambulatory with complaints of kb Abdominal Pain, Vaginal Bleeding. 14:01 The patient presents with abdominal pain in the lower abdomen. Onset: The kb symptoms/episode began/occurred yesterday. The symptoms do not radiate. Associated signs and symptoms: Pertinent positives: vaginal bleeding, Pertinent negatives: nausea, vomiting, and diarrhea, anorexia, blood in stools, chest pain, constipation, dysuria, fever, headache, hematuria, nausea, palpitations, shortness of breath, vomiting, vomiting blood. The symptoms are described as constant. Modifying factors: The symptoms are alleviated by nothing, the symptoms are aggravated by nothing. Severity of pain: At its worst the pain was moderate in the emergency department the pain is unchanged. The patient has not experienced similar symptoms in the past. The patient has not recently seen a physician. Pt reports lower abd pain and vaginal bleeding that started yesterday, worse today. Reports she took Plan B on Thursday.. 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 - Social history:: Smoking status: Patient reports the use of cigarette tobacco products, denies chronic smoking, but will smoke occasionally. ROS: 14:00 Constitutional: Negative for fever, chills, and weight loss, Cardiovascular: Negative kb for chest pain, palpitations, and edema, Respiratory: Negative for shortness of breath, cough, wheezing, and pleuritic chest pain, Back: Negative for injury and pain, MS/Extremity: Negative for injury and deformity, Skin: Negative for injury, rash, and discoloration, Neuro: Negative for headache, weakness, numbness, tingling, and seizure. 14:00 Abdomen/GI: Positive for abdominal pain, Negative for nausea, vomiting, and diarrhea. 14:00 : Positive for vaginal bleeding. Exam: 14:00 Constitutional: This is a well developed, well nourished patient who is awake, alert, kb and in no acute distress. Head/Face: Normocephalic, atraumatic. Chest/axilla: Normal chest wall appearance and motion. Nontender with no deformity. No lesions are appreciated. Cardiovascular: Regular rate and rhythm with a normal S1 and S2. No gallops, murmurs, or rubs. Normal PMI, no JVD. No pulse deficits. Respiratory: Lungs have equal breath sounds bilaterally, clear to auscultation and percussion. No rales, rhonchi or wheezes noted. No increased work of breathing, no retractions or nasal flaring. Back: No spinal tenderness. No costovertebral tenderness. Full range of motion. Skin: Warm, dry with normal turgor. Normal color with no rashes, no lesions, and no evidence of cellulitis. MS/ Extremity: Pulses equal, no cyanosis. Neurovascular intact. Full, normal range of motion. Neuro: Awake and alert, GCS 15, oriented to person, place, time, and situation. Cranial nerves II-XII grossly intact. Motor strength 5/5 in all extremities. Sensory grossly intact. Cerebellar exam normal. Normal gait. 14:00 Abdomen/GI: Inspection: abdomen appears normal, Bowel sounds: normal, in all quadrants, Palpation: soft, in all quadrants, moderate abdominal tenderness, in the suprapubic area. Vital Signs: 13:01 BP 145 / 83; Pulse 77; Resp 16 S; Temp 98.3(TE); Pulse Ox 100% on R/A; Weight 54.43 kg jd3 (R); Height 5 ft. 9 in. (175.26 cm) (R); Pain 7/10; 13:01 Body Mass Index 17.72 (54.43 kg, 175.26 cm) jd3 MDM: 13:04 Patient medically screened. kb 14:00 Data reviewed: vital signs, nurses notes. Data interpreted: Pulse oximetry: on room air kb is 100 %. Interpretation: normal. Counseling: I had a detailed discussion with the patient and/or guardian regarding: the historical points, exam findings, and any diagnostic results supporting the discharge/admit diagnosis, lab results, radiology results, the need for outpatient follow up, an OB/Gyne specialist, to return to the emergency department if symptoms worsen or persist or if there are any questions or concerns that arise at home. 14:27 ED course: Pt inquired why a CT scan was not performed. Educated that her symptoms and kb HPI indicated the use of US as a diagnostic tool. Pt states "well I just want to make sure nothing is missed." I offered to complete a CT scan per pt request. I educated pt that lower abd/pelvic pain and vaginal bleeding with tenderness across lower abd, worse at suprapubic region are not consistent with appendicitis or GI infection. I also discussed lab values and that WBC is normal. After discussion pt states "I will skip the cat scan today and follow up with my doctor.". 03/02 13:11 Order name: Basic Metabolic Panel; Complete Time: 14:17 kb 03/02 13:11 Order name: CBC with Diff; Complete Time: 14:17 kb 03/02 13:11 Order name: US Transvaginal Study (Probe); Complete Time: 13:56 kb 03/02 13:20 Order name: Urine Dipstick--Ancillary (enter results); Complete Time: 13:34 eb 03/02 13:20 Order name: Urine --Ancillary (enter results); Complete Time: 13:34 eb 03/02 13:11 Order name: IV Saline Lock; Complete Time: 14:10 kb 03/02 13:11 Order name: Labs collected and sent; Complete Time: 14:10 kb 03/02 13:11 Order name: Urine Test (obtain specimen); Complete Time: 14:10 kb 03/02 13:11 Order name: Urine Dipstick-Ancillary (obtain specimen); Complete Time: 14:10 kb Administered Medications: 14:00 Drug: TORadol - Ketorolac 15 mg Route: IVP; Site: right antecubital; ls4 14:20 Follow up: Response: No adverse reaction; Marked relief of symptoms ls4 Disposition: 03/02/20 14:18 Discharged to Home. Impression: Lower abdominal pain, unspecified, Abnormal uterine and vaginal bleeding, unspecified. - Condition is Stable. - Discharge Instructions: Abdominal Pain, Adult, [id number], Abnormal Uterine Bleeding, [id number]. - Prescriptions for Diclofenac Sodium 75 mg Oral Tablet, Delayed Release (E.C.) - take 1 tablet by ORAL route 2 times per day As needed; 30 tablet. - Medication Reconciliation Form, Thank You Letter, Antibiotic Education, Prescription Opioid Use form. - Follow up: Emergency Department; When: As needed; Reason: Worsening of condition. Follow up: Private Physician; When: 2 - 3 days; Reason: Recheck today's complaints, Continuance of care, Re-evaluation by your physician. Addendum: 03/05/2020 08:21 Co-signature as Attending Physician, Sumit Cooley MD I agree with the assessment and k dr plan of care. Signatures: Dispatcher [employer] EDMS Mala Baldwin, STREET DEPARTMENT DISPATCHER-C STREET DEPARTMENT DISPATCHER-Ckb Sumit Cooley MD MD kdr Hussein Cook RN RN jd3 Claritza Gage RN RN ls4 Corrections: (The following items were deleted from the chart) 03/02 15:29 14:18 03/02/2020 14:18 Discharged to Home. Impression: Lower abdominal pain, ls4 unspecified; Abnormal uterine and vaginal bleeding, unspecified. Condition is Stable. Forms are Medication Reconciliation Form, Thank You Letter, Antibiotic Education, Prescription Opioid Use. Follow up: Emergency Department; When: As needed; Reason: Worsening of condition. Follow up: Private Physician; When: 2 - 3 days; Reason: Recheck today's complaints, Continuance of care, Re-evaluation by your physician. kb
[2020-03-02 15:45] VITALS: BP 145/83; TEMP 98.3; O2SAT 100
== END 2020-03-02 15:29 | disposition home or self-care (01) ==
LOC: ER 12:49
DX: R10.30 Lower abdominal pain, unspecified (principal); N93.9 Abnormal uterine and vaginal bleeding, unspecified
CPT/HCPCS: 36415; 76830; 80048; 81003; 81025; 85025; 96374; 99285